=== PATIENT | female | born 1960 | race Caucasian/White ===

== ENCOUNTER 2020-06-05 06:44 | Outpatient (CLI) | payer BC, OTHER ==
--- NOTE | 2020-06-05 16:50 | RAD ---
Chest 2 views HISTORY: Preop. COMPARISON: 12/06/2009. FINDINGS: Cardiac silhouette and pulmonary vasculature are unremarkable. Mediastinum is midline. No confluent airspace consolidation, pneumothorax, or pleural fluid are apparent. Metallic anchor at the right shoulder from prior surgery. IMPRESSION : No abnormalities are demonstrated.
[2020-06-05 18:26] LABS: #Basophils 0.1 thou/uL (0.0-0.2); #Eosinphils 0.2 thou/uL (0.0-0.7); #Lymphocytes 1.7 thou/uL (1.20-3.40); #Monocytes 0.5 thou/uL (0.11-0.59); #Neutrophils 4.6 thou/uL (1.40-6.50); %Basophils 0.9 % (0.0-1.0); %Eosinophils 2.3 % (0.0-10.0); %Lymphocytes 24.3 % (21.0-51.0); %Monocytes 7.3 % (0.0-10.0); %Neutrophils 65.3 % (42.0-75.0); Mean Corpuscular HGB CONC 33.4 g/dL (32.0-36.0); Mean Platelet Volume 8.3 fL (7.4-10.4); Platelet Count 248 thou/uL (130-400); RBC Distribution Width 13.8 % (11.5-14.5)
[2020-06-05 19:08] LABS: ALT (SGPT) 16 U/L (8-55); AST (SGOT) 15 U/L (5-34); Albumin 4.2 g/dL (3.5-5.0); Alkaline Phosphatase 101 U/L (40-110); Anion Gap 12 mmol/L (10-20); BUN (Urea Nitrogen) 20 mg/dL (9.8-20.1); Bilirubin, Total 0.5 mg/dL (0.2-1.2); Calc. Creatinine Clearance 0 mL/min (70-130); Calcium 9.4 mg/dL (7.8-10.44); Carbon Dioxide 27 mmol/L (22-29); Chloride 108 mmol/L (98-107); Estimated GFR-MDRD 47; Globulin 2.7 g/dL (2.4-3.5); Glucose 102 mg/dL (70-105); Potassium 4.7 mmol/L (3.5-5.1); Protein, Total 6.9 g/dL (6.0-8.3); Sodium 142 mmol/L (136-145)
[2020-06-06 11:39] LABS: SARS-CoV-2 MS2 Positive; SARS-CoV-2 N Gene Negative; SARS-CoV-2 S Gene Negative; SARS-CoV-2 by NAA Not Detected (NotDetected); SARS-CoV-2 orf1ab Negative
--- NOTE | 2020-06-06 15:01 | EKG ---
Test Reason : Blood Pressure : / mmHG Vent. Rate : 078 BPM Atrial Rate : 078 BPM P-R Int : 140 ms QRS Dur : 112 ms QT Int : 424 ms P-R-T Axes : 025 055 048 degrees QTc Int : 483 ms Normal sinus rhythm Prolonged QT Abnormal ECG Confirmed by SUSAN ZELAYA (2) on 06/06/2020 3:00:41 PM Referred By: MEAGHAN Confirmed By:SUSAN ZELAYA
== END 2020-06-05 06:45 | disposition home or self-care (01) ==
LOC: LABBT 06:44 → SCSRAD 06:45
PROVIDERS: ATTEND Surgery
DX: Z01.818 Encounter for other preprocedural examination (principal); E66.01 Morbid (severe) obesity due to excess calories; Z20.828 Contact with and (suspected) exposure to other viral communicable diseases
CPT/HCPCS: 71046; 80053; 83036; 85025; 87635; 93005; 93010; U0003

== ENCOUNTER 2020-06-05 16:30 | Inpatient (IN) | payer BC, OTHER ==
[2020-06-07 10:04] VITALS: BMI 56.9
[2020-06-08] MEDS ORDERED: Bupivacaine/Epinephrine 0.25% 30 ML VIAL ONE (06:33)
[2020-06-08] MEDS ORDERED: Heparin 5,000 UNITS/ML VIAL ONE (06:36)
[2020-06-08] MEDS ORDERED: Fentanyl 250 MCG/5 ML VIAL ONE (07:02)
[2020-06-08] MEDS ORDERED: SUGAMMADEX SODIUM 500 MG/5 ML VIAL ONE (07:03)
[2020-06-08] MEDS ORDERED: Scopolamine 1.5 mg/72 hour Patch ONE (07:11)
[2020-06-08] MEDS ORDERED: Lidocaine 2% Jelly 5 ML TUBE ONE (07:32)
[2020-06-08] MEDS ORDERED: Promethazine HCl 25 MG/ML VIAL SLOW IVP PRN (08:46)
[2020-06-08] MEDS ORDERED: Promethazine HCl 25 MG/ML VIAL IM PRN ×3 (08:46→09:56)
[2020-06-08] MEDS ORDERED: Ondansetron HCl/PF 4 MG/2 ML Vial IVP PRN (08:46)
[2020-06-08] MEDS ORDERED: Meperidine HCl/PF 25 MG/ML VIAL SLOW IVP PRN (08:46)
[2020-06-08] MEDS ORDERED: Zolpidem Tartrate 5 MG TAB PO PRN (09:11)
[2020-06-08] MEDS ORDERED: Ondansetron PF 4 MG/2 ML Vial IVP PRN ×2 (09:11→09:56)
[2020-06-08] MEDS ORDERED: diphenhydrAMINE 50 MG/ML VIAL IM PRN (09:11)
[2020-06-08] MEDS ORDERED: fentaNYL Citrate/PF 2,000 MCG in Sodium Chloride 0.9% 60 ML IV PRN (09:11)
[2020-06-08] MEDS ORDERED: diphenhydrAMINE 50 MG/ML VIAL IVP PRN ×2 (09:11→09:56)
[2020-06-08] MEDS ORDERED: diphenhydrAMINE 25 MG CAP PO PRN (09:11)
[2020-06-08] MEDS ORDERED: Naloxone HCl 0.4 mg/ml Vial IV PRN (09:11)
[2020-06-08] MEDS ORDERED: Communication Order-Pharmacy FS SCH (09:15)
[2020-06-08] MEDS ORDERED: Fentanyl 100 MCG/2 ML VIAL ONE ×2 (09:17→09:44)
[2020-06-08] MEDS ORDERED: Ondansetron PF 4 MG/2 ML Vial ONE ×2 (09:20→11:19)
--- NOTE | 2020-06-08 09:23 | OP ---
DATE OF PROCEDURE: 06/08/2020 PREOPERATIVE DIAGNOSES: 1. Morbid obesity. 2. Hypertension. POSTOPERATIVE DIAGNOSES: 1. Morbid obesity. 2. Hypertension. 3. Paraesophageal hiatal hernia. PROCEDURES PERFORMED: 1. Laparoscopic sleeve gastrectomy with Ethicon staple line reinforcements and 38-Amharic bougie. 2. Laparoscopic paraesophageal hiatal hernia repair without mesh or fundoplication. 3. Esophagogastroduodenoscopy. ANESTHESIA: General. ESTIMATED BLOOD LOSS: Minimal. COMPLICATIONS: None. SPECIMENS: Stomach. FINDINGS: Hiatal hernia. DESCRIPTION OF PROCEDURE: The patient was taken to the operating room and laid supine on the operating room table. After general anesthetic was obtained, the arms and legs were double strapped to bariatric table. OG tube was used to decompress the stomach, was then removed. The abdomen was prepped and draped in a sterile fashion. Left subcostal 5-mm Optiview trocar was placed in the usual fashion, and high-flow pneumoperitoneum was obtained. Left and right abdominal 12 mm ports as well as a right subcostal 5-mm port were placed under direct visualization. A 5-mm incision was made at the xiphoid, and the Sam was used to raise the liver off the GE junction. Short gastrics were taken down from midbody of the stomach to left guadalupe of diaphragm. Left guadalupe, posterior fundus, and angle of His were completely dissected. This reveals a paraesophageal hernia. The fundus of the stomach was dissected back down into the abdominal cavity. A circumferential dissection of the esophagus was then performed. In GE junction, fundus back into the abdominal cavity. Short gastrics were taken down to a distance of 6 cm proximal to the pylorus. Multiple loads of [place] stapling device used to form the sleeve. The first was fired up at the distance of 6 cm proximal to the pylorus, angled up towards the incisura. Multiple loads were fired up along the bougie. Stomach was completely transected at the angle of His. Two Ethibond sutures in the Ti-KNOT system were used to close the hiatal hernia defect posteriorly. Stomach was removed from the left abdominal incision. This fascial defect was closed using GraNee needle 0-Vicryl tie. Sam was removed under direct visualization without bleeding. A few bleeders on the staple line were clipped using laparoscopic clip device. EGD scope was passed to esophagus, stomach to the level of duodenum without obstruction. There was no injury. There was no bleeding on the staple line. No air leakage. There was no stricture at the incisura or at the diaphragmatic hiatus. No involvement of the GE junction with the staple line. EGD scope was pulled and removed. All ports were removed under direct visualization without bleeding. Pneumoperitoneum was let down. 4-0 Monocryl and Dermabond were used to close all the skin incisions. The patient was sent to Recovery in stable condition. All instrument counts, needle counts, and lap counts were correct. Job ID: [id number]
[2020-06-08] MEDS ORDERED: Promethazine HCl 25 MG/ML VIAL ONE (09:41)
[2020-06-08] MEDS ORDERED: VALSARTAN PO SCH (09:56)
[2020-06-08] MEDS ORDERED: Hydrocodone-Acetamin 15 ML UDCUP PO PRN (09:56)
[2020-06-08] MEDS ORDERED: hydrALAZINE 20 MG/ML VIAL SLOW IVP PRN (09:56)
[2020-06-08] MEDS ORDERED: [UNRECOGNIZED DRUG - OTHER] PO SCH (09:56)
[2020-06-08] MEDS ORDERED: AMLODIPINE PO SCH (09:56)
[2020-06-08] MEDS ORDERED: Dextrose 50% Abboject 50 ML SYRINGE SLOW IVP PRN (09:56)
[2020-06-08] MEDS ORDERED: Dextrose 5% in Water 1,000 ML IV PRN (09:56)
[2020-06-08] MEDS ORDERED: HYDROCHLOROTHIAZIDE PO SCH (09:56)
[2020-06-08] MEDS ORDERED: PROPOFOL 200 MG/20 ML VIAL ONE (11:19)
[2020-06-08] MEDS ORDERED: Dexamethasone 20 MG/5 ML VIAL ONE (11:19)
[2020-06-08] MEDS ORDERED: Labetalol HCl 100 MG/20 ML VIAL ONE (11:19)
[2020-06-08] MEDS ORDERED: Glycopyrrolate 0.2 MG/ML 5 ML SYRINGE ONE (11:19)
[2020-06-08] MEDS ORDERED: Lidocaine 1% PF 5 ML VIAL ONE (11:19)
[2020-06-08] MEDS ORDERED: Rocuronium Bromide 10 MG/ML (10ML VIAL) ONE (11:19)
[2020-06-08] MEDS: D5 1/2 NS w/20 mEq KCL 1,000 ML IV SCH ×2 (12:30→19:47)
[2020-06-08] MEDS: Labetalol HCl 100 MG/20 ML VIAL IVPB PRN ×2 (16:23→23:34)
[2020-06-08] MEDS ORDERED: Oxybutynin ER 5 MG TAB PO SCH (21:00)
[2020-06-08] MEDS ORDERED: Enoxaparin Sodium 40 MG/0.4 ML SYRINGE SC SCH (21:00)
[2020-06-08] MEDS ORDERED: traZODone HCl 50 MG TAB PO SCH (21:00)
[2020-06-08] MEDS ORDERED: Levothyroxine Sodium 75 MCG TAB PO SCH (21:00)
[2020-06-09] MEDS: D5 1/2 NS w/20 mEq KCL 1,000 ML IV SCH ×2 (03:47→11:15)
[2020-06-09] MEDS: Labetalol HCl 100 MG/20 ML VIAL IVPB PRN (03:51)
[2020-06-09 05:29] LABS: #Lymphocytes 1.4 thou/uL (1.20-3.40); #Monocytes 0.7 thou/uL (0.11-0.59); #Neutrophils 7.9 thou/uL (1.40-6.50); %Basophils 0.1 % (0.0-1.0); %Eosinophils 0.2 % (0.0-10.0); %Lymphocytes 13.5 % (21.0-51.0); %Neutrophils 79.2 % (42.0-75.0); Hemoglobin 11.3 g/dL (12.0-16.0); Mean Corpuscular HGB CONC 32.1 g/dL (32.0-36.0); Mean Corpuscular Hemoglobin 29.6 pg (27.0-31.0); Mean Corpuscular Volume 92.1 fL (78.0-98.0); Mean Platelet Volume 7.4 fL (7.4-10.4); Platelet Count 255 thou/uL (130-400); RBC Distribution Width 13.7 % (11.5-14.5); Red Blood Cell (RBC) Count 3.82 mill/uL (4.20-5.40)
[2020-06-09 05:53] LABS: Anion Gap 13 mmol/L (10-20); BUN (Urea Nitrogen) 11 mg/dL (9.8-20.1); Calc. Creatinine Clearance 136 mL/min (70-130); Calcium 8.8 mg/dL (7.8-10.44); Carbon Dioxide 27 mmol/L (22-29); Chloride 103 mmol/L (98-107); Estimated GFR-MDRD 58; Glucose 119 mg/dL (70-105); Potassium 4.8 mmol/L (3.5-5.1); Sodium 138 mmol/L (136-145)
--- NOTE | 2020-06-09 07:37 | PDOC.GSPN ---
Surgery Progress Note: Subj - Subjective Narrative: Ms. Vick is a 59 year old female who is 1 day s/p sleeve gastrectomy and hiatal hernia repair. She endorses ongoing abdominal pain/soreness and nausea, but this improves with her pain medications and anti-emetics. She is more concerned about her urinary frequency and urgency. She does have a history of overactive bladder, for which she is taking oxybutynin. She states that she has gotten up to use the restroom at least 8 times through the night. She believes this is due to the IV fluids she is receiving. She was able to tolerate the clear liquid diet. She is pushing fluids, and there are 2 gatorade bottles on her tray table. She is ambulating well. Denies any fever, chills, cough, SOB, dysuria, diarrhea. Surgery Progress Note: Obj - Vital signs Vital signs: Vital Signs - Most Recent Temp Pulse Resp BP Pulse Ox 98.9 F 80 18 175/84 H 94 L 06/09/20 04:10 06/09/20 04:10 06/09/20 04:10 06/09/20 04:10 06/09/20 04:10 - Physical Exam General: no distress, obese Cardiovascular: regular rate and rhythm Respiratory: clear to auscultation Abdomen: soft, positive bowel sounds, appropriately tender Wound: healing well (One incision with some dried blood visible, likely due to friction from her undergarments. No active bleeding or discharge seen.) Surgery Progress Note: Results - Labs Result Diagrams: 06/09/20 05:05 06/09/20 05:05 Lab results: Laboratory Results - last 12 hr 06/09/20 06/09/20 05:05 05:05 WBC 10.0 RBC 3.82 L Hgb 11.3 L Hct 35.2 L MCV 92.1 MCH 29.6 MCHC 32.1 RDW 13.7 Plt Count 255 MPV 7.4 Neutrophils % 79.2 H Lymphocytes % 13.5 L Monocytes % 7.0 Eosinophils % 0.2 Basophils % 0.1 Neutrophils # 7.9 H Lymphocytes # 1.4 Monocytes # 0.7 H Eosinophils # 0.0 Basophils # 0.0 Sodium 138 Potassium 4.8 Chloride 103 Carbon Dioxide 27 Anion Gap 13 BUN 11 Creatinine 0.98 Estimated GFR (MDRD) 58 Glucose 119 H Calcium 8.8 Surgery Progress Note: A/P - Plan Plan: Post op day 1 from sleeve gastrectomy & HH repair: Will with pain regime & anti- emetics. Consider discharge home today if patient continues to tolerate diet. Wi ll see back in office in 2 weeks. HTN: BP readings in the 160s-170s/80s. Patient has not taken all of her home BP medications yet. She is scheduled to restart her Losartan today. Will continue with labetalol and hydralazine PRN for elevated BP >170/100.
[2020-06-09] MEDS ORDERED: traMADol HCl 50 MG TAB PO PRN ×2 (08:50)
[2020-06-09] MEDS ORDERED: Bupropion 150 MG XL TAB PO SCH (09:00)
[2020-06-09] MEDS ORDERED: Losartan 25 MG TAB PO SCH (09:00)
[2020-06-09] MEDS ORDERED: Pantoprazole 40 MG VIAL IVP SCH (09:00)
[2020-06-09 11:36] VITALS: BP 164/69; TEMP 98.1
--- NOTE | 2020-06-10 00:29 | DIS ---
DATE OF ADMISSION: 06/08/2020 DATE OF DISCHARGE: 06/09/2020 ADMIT DIAGNOSIS: Morbid obesity. DISCHARGE DIAGNOSIS: Morbid obesity. PROCEDURE: Laparoscopic sleeve gastrectomy by Dr. Man without complication. CONDITION ON DISCHARGE: Improved. STAFF: Javy Man MD HOSPITAL COURSE: On postop day 1, the patient is ambulatory. She is tolerating liquids. She is to be discharged home. Prescriptions for Lortab Elixir, Zofran, pantoprazole were already sent over to her pharmacy. She will follow up with me in 2 weeks. Job ID: [id number]
== END 2020-06-09 16:05 | disposition home or self-care (01) | DRG 621 ==
LOC: SURG A 06-08 06:20 → SJJU 06-08 11:36 → EDSTATUS 06-08 16:30
PROVIDERS: ADMIT Surgery; ATTEND Surgery
PROC: 0DB64Z3 Excision of Stomach, Percutaneous Endoscopic Approach, Vertical (ICD-10-PCS; principal; 2020-06-08)
PROC: 0BQT4ZZ Repair Diaphragm, Percutaneous Endoscopic Approach (ICD-10-PCS; 2020-06-08)
DX: E66.01 Morbid (severe) obesity due to excess calories (principal); I10 Essential (primary) hypertension; K44.9 Diaphragmatic hernia without obstruction or gangrene; Z20.828 Contact with and (suspected) exposure to other viral communicable diseases; E03.9 Hypothyroidism, unspecified; G47.33 Obstructive sleep apnea (adult) (pediatric); F32.9 Major depressive disorder, single episode, unspecified; F41.9 Anxiety disorder, unspecified; M19.90 Unspecified osteoarthritis, unspecified site; Z68.43 Body mass index [BMI] 50.0-59.9, adult; Z79.899 Other long term (current) drug therapy; Z79.890 Hormone replacement therapy; Z90.49 Acquired absence of other specified parts of digestive tract
CPT/HCPCS: 36415; 71046; 80048; 80053; 83036; 85025; 87635; 88307; 88312; 93005; C9113; J0690; J1644; J1650; J2405; J2550; J3010; J3480; U0003

== ENCOUNTER 2023-08-01 14:56 | Outpatient (CLI) | payer OTHER | END 2023-08-01 14:57 | disposition home or self-care (01) | LOC: BICRAD 14:56 | PROVIDERS: ATTEND Family Medicine | DX: M51.06 Intervertebral disc disorders with myelopathy, lumbar region (principal); M54.31 Sciatica, right side; M47.16 Other spondylosis with myelopathy, lumbar region | CPT/HCPCS: 72110 ==

== ENCOUNTER 2024-05-28 11:04 | Outpatient (CLI) | payer BC ==
[2024-05-28 12:30] LABS: #Basophils 0.03 10x3/uL (0.0-0.2); %Basophils 0.5 % (0.0-1.0); %Eosinophils 1.5 % (0.0-10.0); %Lymphocytes 37.3 % (21.0-51.0); %Monocytes 4.6 % (0.0-10.0); %Neutrophils 55.9 % (42.0-75.0); Hematocrit 38.8 % (36.0-47.0); Hemoglobin 12.5 g/dL (12.0-16.0); Mean Corpuscular HGB CONC 32.2 g/dL (32.0-36.0); Mean Corpuscular Hemoglobin 31.3 pg (27.0-31.0); Mean Platelet Volume 9.6 fL (7.4-10.4); Platelet Count 242 10x3/uL (130-400); RBC Distribution Width 13.5 % (11.5-14.5)
[2024-05-28 12:35] LABS: Bilirubin Negative (Negative); Blood, Urine Negative (Negative); Clarity Clear (Clear); Glucose, Urine (Dipstick) Normal (Negative); Ketone, Urine Negative (Negative); Leukocyte Negative Leu/uL (Negative); Nitrite Negative (Negative); Protein, Urine (Dipstick) Negative (Neg-Trace); Specific Gravity, Urine 1.005 (1.002-1.036); Urobilinogen Normal mg/dL (Less than 2)
[2024-05-28 13:00] LABS: Anion Gap 10 mmol/L (10-20); BUN (Urea Nitrogen) 11 mg/dL (9.8-20.1); Calc. Creatinine Clearance 0 mL/min (70-130); Carbon Dioxide 30 mmol/L (23-31); Chloride 104 mmol/L (98-107); Estimated GFR 63; Glucose 103 mg/dL (80-115); Potassium 3.8 mmol/L (3.5-5.1); Sodium 140 mmol/L (136-145)
[2024-05-28 13:05] LABS: INR-International Normal Ratio 1.1; Prothrombin Time 14.3 sec (12.0-14.7)
== END 2024-05-28 11:05 | disposition home or self-care (01) ==
LOC: LABBT 11:04
PROVIDERS: ATTEND Orthopaedic Surgery
DX: Z01.818 Encounter for other preprocedural examination (principal); M17.12 Unilateral primary osteoarthritis, left knee
CPT/HCPCS: 71046; 80048; 81003; 85025; 85610; 87081; 93005; 93010

== ENCOUNTER 2024-06-02 07:08 | Inpatient (IN) | payer BC ==
[2024-06-02] MEDS ORDERED: Bupivacaine PF 0.5% 30 ML VIAL ONE (07:53)
[2024-06-02] MEDS ORDERED: Midazolam HCl 2 mg/2 ml Vial ONE ×2 (07:53→09:35)
[2024-06-02] MEDS ORDERED: fentaNYL 50 mcg/mL 1 mL Vial ONE ×2 (07:53→09:35)
[2024-06-02] MEDS ORDERED: Tranexamic Acid 1,000 MG/10 ML VIAL ONE ×2 (08:24→12:21)
[2024-06-02] MEDS ORDERED: Vancomycin 1 GM/200 ML (FROZEN) BAG ONE (08:24)
[2024-06-02] MEDS ORDERED: Sodium Chloride 0.9% 100 ML ONE (08:24)
[2024-06-02] MEDS ORDERED: Bupivacaine 0.25% HCL 30 ML VIAL ONE (09:10)
[2024-06-02] MEDS ORDERED: Promethazine HCl 25 MG/ML VIAL IM PRN ×2 (09:15→11:44)
[2024-06-02] MEDS ORDERED: traMADol HCl 50 MG TAB PO PRN ×2 (09:15)
[2024-06-02] MEDS ORDERED: Ropivacaine 0.2% 550 ML 550 ML NERVE BLCK SCH (09:15)
[2024-06-02] MEDS ORDERED: fentaNYL 50 mcg/mL 1 mL Vial SLOW IVP PRN (09:15)
[2024-06-02] MEDS ORDERED: Zolpidem Tartrate 5 MG TAB PO PRN ×2 (09:15→11:44)
[2024-06-02] MEDS ORDERED: Ondansetron PF 4 MG/2 ML Vial IVP PRN ×2 (09:15→11:44)
[2024-06-02] MEDS ORDERED: Propofol 1,000 MG/100 ML VIAL IV ONE (09:27)
[2024-06-02] MEDS ORDERED: CEFAZOLIN 2 GM VIAL ONE (09:28)
[2024-06-02] MEDS ORDERED: Lidocaine 2% PF 5 ML VIAL ONE (09:30)
[2024-06-02] MEDS ORDERED: Bupivacaine HCl 0.5%/Epinephrine 1:200,000/PF 30 ml Vial ONE (10:07)
[2024-06-02] MEDS ORDERED: Dexamethasone 20 MG/5 ML VIAL ONE ×2 (10:07→10:18)
[2024-06-02] MEDS ORDERED: ePHEDrine Sulfate 50 MG/10 ML VIAL ONE (10:07)
[2024-06-02] MEDS ORDERED: Ondansetron PF 4 MG/2 ML Vial ONE (10:18)
[2024-06-02] MEDS ORDERED: PHENYLEPHRINE-NS 100 MCG/ML 10 ML SYRINGE ONE (10:37)
[2024-06-02] MEDS ORDERED: diphenhydrAMINE 25 MG CAP PO PRN (11:44)
[2024-06-02] MEDS ORDERED: Acetaminophen 325 MG TAB PO PRN (11:44)
[2024-06-02] MEDS ORDERED: Tranexamic Acid 1,000 MG in Sodium Chloride 0.9% 100 ML IVPB SCH (11:45)
[2024-06-02] MEDS ORDERED: tiZANidine HCl 4 MG TAB PO PRN (11:46)
[2024-06-02] MEDS ORDERED: fentaNYL PF 100 MCG/2 ML SYRINGE ONE (12:21)
[2024-06-02] MEDS: Ketorolac Tromethamine 30 MG (1 mL) VIAL IVP SCH (16:42)
[2024-06-02] MEDS: HYDROcodone/Acetaminophen 10/325 mg Tablet PO PRN (16:43)
[2024-06-02] MEDS: CEFAZOLIN 2 GM in Sodium Chloride 0.9% 100 ML IVPB SCH (18:26)
[2024-06-02 19:23] VITALS: BMI 28.7
[2024-06-02] MEDS: Sodium Chloride 0.9% 1,000 ML IV SCH (19:43)
[2024-06-02] MEDS: Vancomycin (BATCH) 1.5 GM in Premix 1 BAG IVPB SCH (20:46)
[2024-06-02] MEDS: Aspirin 81 mg Enteric Coated Tablet PO SCH (20:49)
[2024-06-02] MEDS: Ferrous Gluconate 324 MG TAB PO SCH (20:49)
[2024-06-02] MEDS: traZODone HCl 50 MG TAB PO SCH (20:49)
[2024-06-02] MEDS: Oxybutynin ER 5 MG TAB PO SCH (20:49)
[2024-06-02] MEDS: Senokot S 8.6-50 MG TAB PO SCH (20:49)
[2024-06-02] MEDS: Gabapentin 400 MG CAP PO SCH (20:49)
[2024-06-03] MEDS: HYDROcodone/Acetaminophen 10/325 mg Tablet PO PRN (00:53)
[2024-06-03] MEDS: Levothyroxine Sodium 112 MCG TAB PO SCH (04:58)
[2024-06-03 05:45] LABS: Hematocrit 26.2 % (36.0-47.0); Hemoglobin 8.4 g/dL (12.0-16.0); Mean Corpuscular HGB CONC 32.1 g/dL (32.0-36.0); Mean Corpuscular Hemoglobin 31.7 pg (27.0-31.0); Mean Corpuscular Volume 98.9 fL (78.0-98.0); Mean Platelet Volume 9.8 fL (7.4-10.4); Platelet Count 161 10x3/uL (130-400); RBC Distribution Width 13.5 % (11.5-14.5); Red Blood Cell (RBC) Count 2.65 mill/uL (4.20-5.40)
[2024-06-03] MEDS: Losartan 25 MG TAB PO SCH (09:26)
[2024-06-03] MEDS: Sertraline 100 MG TAB PO SCH (09:26)
[2024-06-03] MEDS: Multivitamin W/ Minerals 1 TAB PO SCH (09:26)
[2024-06-03] MEDS: Pantoprazole DR 40 MG TAB PO SCH (09:27)
[2024-06-03] MEDS: Gabapentin 300 MG CAP PO SCH (09:27)
[2024-06-04 05:00] LABS: Hematocrit 23.6 % (36.0-47.0); Hemoglobin 7.4 g/dL (12.0-16.0); Mean Corpuscular HGB CONC 31.4 g/dL (32.0-36.0); Mean Corpuscular Hemoglobin 31.4 pg (27.0-31.0); Mean Platelet Volume 9.8 fL (7.4-10.4); Platelet Count 131 10x3/uL (130-400); RBC Distribution Width 13.8 % (11.5-14.5); Red Blood Cell (RBC) Count 2.36 mill/uL (4.20-5.40)
[2024-06-04 11:50] VITALS: BP 117/72; TEMP 98
[2024-06-04] MEDS ORDERED: FLU (Fluarix Triv) TS24-25(6MOS UP)/PF 45 MCG/0.5 ML Syringe ONE (13:58)
[2024-06-04] MEDS: FLU (Fluarix Triv) TS24-25(6MOS UP)/PF 45 MCG/0.5 ML Syringe IM ONE (14:15)
== END 2024-06-04 14:40 | disposition home or self-care (01) | DRG 470 ==
LOC: SDC 07:08 → SURG B 13:31 → SDC 15:23 → SURG B 15:23 → OBSVTOIN 06-03 14:38
PROVIDERS: ADMIT Orthopaedic Surgery; ATTEND Orthopaedic Surgery
PROC: 0SRD0J9 Replacement of Left Knee Joint with Synthetic Substitute, Cemented, Open Approach (ICD-10-PCS; principal; 2024-06-02)
PROC: 8E0Y0CZ Robotic Assisted Procedure of Lower Extremity, Open Approach (ICD-10-PCS; 2024-06-02)
DX: M17.12 Unilateral primary osteoarthritis, left knee (principal); D64.89 Other specified anemias; I10 Essential (primary) hypertension; F41.9 Anxiety disorder, unspecified; F32.A Depression, unspecified; E03.9 Hypothyroidism, unspecified; E66.9 Obesity, unspecified; Z96.641 Presence of right artificial hip joint; Z82.49 Family history of ischemic heart disease and other diseases of the circulatory system; Z90.710 Acquired absence of both cervix and uterus; Z79.899 Other long term (current) drug therapy; Z79.890 Hormone replacement therapy; Z88.5 Allergy status to narcotic agent; Z68.28 Body mass index [BMI] 28.0-28.9, adult
CPT/HCPCS: 36415; 85027; 90656; 96365; 96375; 96376; A4306; C1713; C1776; C1889; G0378; J0665; J1100; J1885; J2250; J2405; J2704; J2795; J3010; J3370; J3370-JW